=== PATIENT | female | born 1940 | race Caucasian/White ===

== ENCOUNTER 2016-02-24 07:56 | Day surgery (SDC) | payer OTHER, BC ==
[2016-02-20 11:24] VITALS: BMI 23.1
[2016-02-24] MEDS ORDERED: GENTAMICIN SULFATE 0.3% OPHTHALMIC (EYE DROPS) 5ML BOTTLE OS SCH (08:00)
[2016-02-24] MEDS ORDERED: TROPICAMIDE 1% OPHTH SOLN 15 ML BOTTLE OS SCH (08:00)
[2016-02-24] MEDS ORDERED: PHENYLEPHRINE 2.5% OPHTH SOLN 15 ML BOTTLE OS SCH (08:00)
[2016-02-24] MEDS ORDERED: FLURBIPROFEN 0.03% OPHTH SOLN 2.5 ML BOTTLE OS SCH (08:00)
[2016-02-24] MEDS ORDERED: CYCLOPENTOLATE HCL 1% OPHTH SOLN 2 ML BOTTLE OS SCH (08:00)
[2016-02-24] MEDS ORDERED: FLURBIPROFEN 0.03% OPHTH SOLN 2.5 ML BOTTLE ONE (09:01)
[2016-02-24] MEDS ORDERED: CYCLOPENTOLATE HCL 1% OPHTH SOLN 2 ML BOTTLE ONE (09:01)
[2016-02-24] MEDS ORDERED: GENTAMICIN SULFATE 0.3% OPHTHALMIC (EYE DROPS) 5ML BOTTLE ONE (09:02)
[2016-02-24] MEDS ORDERED: TROPICAMIDE 1% OPHTH SOLN 15 ML BOTTLE ONE (09:02)
[2016-02-24] MEDS ORDERED: PHENYLEPHRINE 2.5% OPHTH SOLN 15 ML BOTTLE ONE (09:02)
[2016-02-24] MEDS ORDERED: LACTATED RINGERS SOLUTION 1,000 ML IV SCH (09:15)
[2016-02-24 10:52] VITALS: TEMP 98.3
[2016-02-24] MEDS ORDERED: ACETAMINOPHEN 325 MG TABLET (FP) PO PRN (11:07)
[2016-02-24] MEDS ORDERED: ONDANSETRON 4 MG/2 ML VIAL IVPUSH PRN (11:13)
[2016-02-24 11:21] VITALS: BP 155/52; PULSE 76
--- NOTE | 2016-02-24 13:30 | OP ---
DATE OF OPERATION: 02/24/2016 PREOPERATIVE DIAGNOSIS: Cataract, left eye. POSTOPERATIVE DIAGNOSIS: Cataract, left eye. PROCEDURE: Cataract extraction via phacoemulsification with insertion of posterior chamber lens implant, left eye. SURGEON: Wale Alexander MD TAX ACCOUNTING MANAGER: Sveta Rutledge MD ANESTHESIA: Regional with sedation. COMPLICATIONS: None. SPECIMENS: None. ESTIMATED BLOOD LOSS: Less than 1 mL. DESCRIPTION OF PROCEDURE: The patient was identified in the holding area. After all risks, benefits, and alternatives were explained to the patient, informed consent was obtained. The left eye was marked with a marking pen. The patient was then wheeled into the operating room on an eye stretcher. After formal time-out was performed, a 3-mL injection of equal parts 2% lidocaine with epinephrine and 0.5% Marcaine was given around the left eye. The patient was then prepped and draped in the usual sterile fashion. An eyelid speculum was placed over the eyelid of the right eye. An inferotemporal paracentesis incision was then created using [id number] blade. Viscoelastic was then injected into the anterior chamber. A 2.4-mm keratome blade was then used to make a supratemporal incision. A 360-degree continuous curvilinear capsulorrhexis was then created using cystotome and Utrata forceps. Hydrodissection was then performed using balanced saline solution on a cannula. Phacoemulsification was then introduced to disassemble and remove the nucleus in its entirety. Irrigation/aspiration was then used to remove any remaining cortical material from the eye. The capsular bag was then filled with viscoelastic. An Shaun Model [id number] with a power of 15.5 diopter serial number [id number] was inspected and found to be defect free and injected into the capsular bag. Irrigation/aspiration was then used to remove any remaining viscoelastic from the eye. The intracameral injections of and Miostat were then given. All wounds were then hydrated with balanced saline solution and noted to be watertight. The anterior chamber was deep. The lens was perfectly centered in the capsular bag. The eye had an adequate pressure. Topical antibiotic eyedrops and antibiotics were given to the left eye. The eyelid speculum was removed from the left eye. The left eye was then patched and shielded. The patient tolerated the procedure well and left the operating room in stable condition to follow up in the eye clinic the following morning at 9 o'clock. WALE ALEXANDER M.D. [id number]
== END 2016-02-24 14:20 | disposition home or self-care (01) ==
LOC: FASU 07:56
PROVIDERS: ATTEND Ophthalmology
PROC: 08RK3JZ Replacement of Left Lens with Synthetic Substitute, Percutaneous Approach (ICD-10-PCS; principal; 2016-02-24 09:57)
DX: H26.8 Other specified cataract (principal)

== ENCOUNTER 2016-06-22 07:53 | Day surgery (SDC) | payer OTHER, BC ==
[2016-06-11 12:26] VITALS: BMI 24.0
[2016-06-22] MEDS ORDERED: FLURBIPROFEN 0.03% OPHTH SOLN 2.5 ML BOTTLE ONE (08:09)
[2016-06-22] MEDS ORDERED: GENTAMICIN SULFATE 0.3% OPHTHALMIC (EYE DROPS) 5ML BOTTLE ONE (08:09)
[2016-06-22] MEDS ORDERED: CYCLOPENTOLATE HCL 1% OPHTH SOLN 2 ML BOTTLE ONE (08:09)
[2016-06-22] MEDS ORDERED: PHENYLEPHRINE 2.5% OPHTH SOLN 15 ML BOTTLE ONE (08:09)
[2016-06-22] MEDS ORDERED: TROPICAMIDE 1% OPHTH SOLN 15 ML BOTTLE ONE (08:09)
[2016-06-22] MEDS: FLURBIPROFEN 0.03% OPHTH SOLN 2.5 ML BOTTLE OD SCH ×5 (08:20→08:40)
[2016-06-22] MEDS: CYCLOPENTOLATE HCL 1% OPHTH SOLN 2 ML BOTTLE OD SCH ×5 (08:20→08:40)
[2016-06-22] MEDS: TROPICAMIDE 1% OPHTH SOLN 15 ML BOTTLE OD SCH ×5 (08:20→08:40)
[2016-06-22] MEDS: PHENYLEPHRINE 2.5% OPHTH SOLN 15 ML BOTTLE OD SCH ×5 (08:20→08:40)
[2016-06-22] MEDS: GENTAMICIN SULFATE 0.3% OPHTHALMIC (EYE DROPS) 5ML BOTTLE OD SCH ×5 (08:20→08:40)
[2016-06-22] MEDS ORDERED: MIDAZOLAM HCL 2 MG/2 ML SINGLE DOSE VIAL ONE (09:19)
[2016-06-22] MEDS ORDERED: POVIDONE-IODINE 5% OPHTHALMIC PREP 30 ML SOLUTION ONE (09:27)
[2016-06-22] MEDS ORDERED: BUPIVACAINE HCL/PF 0.5% (5MG/ML) 10 ML VIAL ONE (09:27)
[2016-06-22] MEDS ORDERED: LIDOCAINE HCL/PF 2% SDV 5ML VIAL ONE (09:27)
[2016-06-22] MEDS ORDERED: ACETYLCHOLINE 1:100 INTRA-OCUL 20 MG/2 ML KIT ONE (09:28)
[2016-06-22] MEDS ORDERED: ACETAMINOPHEN 325 MG TABLET (FP) PO PRN (10:47)
[2016-06-22 11:08] VITALS: TEMP 98.1
[2016-06-22 11:34] VITALS: BP 145/68; PULSE 68
--- NOTE | 2016-06-22 11:59 | OP ---
DATE OF OPERATION: 06/22/2016 PREOPERATIVE DIAGNOSIS: Cataract, right eye. POSTOPERATIVE DIAGNOSIS: Cataract, right eye. PROCEDURE: Cataract extraction via phacoemulsification with insertion of posterior chamber lens implant, right eye. SURGEON: Wale Alexander MD LEGAL COUNSEL: Sveta Rutledge MD ANESTHESIA: Regional with sedation. ESTIMATED BLOOD LOSS: Less than 1 mL. SPECIMENS: None. COMPLICATIONS: None. DESCRIPTION OF PROCEDURE: The patient was identified in the holding area. After all risks, benefits, and alternatives were explained to the patient, informed consent was obtained. The right eye was marked with a marking pen. The patient then entered the operating room on an eye stretcher. After formal time-out was performed, a 3 mL injection of equal parts 2% lidocaine with epinephrine and 0.5% Marcaine was given around the right eye. The right eye was then prepped and draped in the usual sterile fashion. An eyelid speculum was placed beneath the eyelid of the right eye. Upon inspection, a myotic pupil was noted. A superotemporal paracentesis incision was then created using [id number] blade followed by 5 equally spaced paracentesis incisions created using a 15-degree blade. Through each of the 5 created paracentesis incisions, a single iris hook was placed. The pupil was then dilated to 6 mm. A 2.4-mm keratome blade was then used to make an infratemporal incision. Viscoelastic was injected into the anterior chamber before the main wound was created. A 360-degree continuous curvilinear capsulorrhexis was then created using thin cystotome and Utrata forceps. Hydrodissection was performed with balanced saline solution on the cannula. Phacoemulsification was introduced to disassemble and remove the nucleus in its entirety. Irrigation/aspiration was then used to remove any remaining cortical material from the eye. The capsular bag was then refilled with viscoelastic. An Shaun Model [id number] with a power of 16.5 diopter serial number [id number] was inspected and found to be defect free and injected into the capsular bag. Irrigation/aspiration was used to remove any remaining viscoelastic from the eye. All 5 iris hooks were then removed from the eye. The anterior chamber was then reformed using balanced saline solution. Intracameral injections of Miochol and Miostat were given, and the pupil came down and was round. All wounds were hydrated with balanced saline solution and found to be watertight. The anterior chamber was deep. There was a red reflex. The lens was perfectly centered in the capsular bag, and the pressure was adequate. Topical antibiotic eyedrops and ointment were administered to the right eye. The right eye was patched and shielded. The eyelid speculum was removed after the topical eye drops and ointment were applied. The patient tolerated the procedure well and left the operating room in stable condition to follow up in the eye clinic the following morning at 9 o'clock. WALE ALEXANDER M.D. [id number]
== END 2016-06-22 11:40 | disposition home or self-care (01) ==
LOC: FASU 07:53
PROVIDERS: ATTEND Ophthalmology
PROC: 08RJ3JZ Replacement of Right Lens with Synthetic Substitute, Percutaneous Approach (ICD-10-PCS; principal; 2016-06-22 10:02)
DX: H26.8 Other specified cataract (principal)

== ENCOUNTER 2023-03-02 06:11 | Day surgery (SDC) | payer OTHER, BC ==
[2023-03-02 06:59] VITALS: BMI 21.7
[2023-03-02] MEDS ORDERED: BUPIVACAINE LIPOSOME/PF (EXPAREL) 266 MG/20 ML VIAL ONE (07:07)
[2023-03-02] MEDS ORDERED: MIDAZOLAM HCL 2 MG/2 ML SINGLE DOSE VIAL ONE ×3 (07:07→08:27)
[2023-03-02] MEDS ORDERED: BUPIVACAINE HCL/PF 0.5% (5 MG/ML) 30 ML VIAL IJ ONE (07:07)
[2023-03-02] MEDS ORDERED: BUPIVACAINE HCL/PF 0.5% (5MG/ML) 10 ML VIAL ONE (07:13)
[2023-03-02] MEDS ORDERED: SODIUM CHLORIDE 0.9% P/F 10 ML VIAL IJ ONE (09:00)
[2023-03-02] MEDS ORDERED: DEXAMETHASONE SOD PHOSPHATE 4 MG/1 ML VIAL ONE (09:00)
[2023-03-02] MEDS ORDERED: TRANEXAMIC ACID 1000 MG/10 ML VIAL ONE (09:00)
[2023-03-02] MEDS ORDERED: ceFAZolin SODIUM 1 GM VIAL ONE (09:00)
[2023-03-02] MEDS ORDERED: ONDANSETRON 4 MG/2 ML VIAL ONE (09:00)
[2023-03-02] MEDS ORDERED: LACTATED RINGERS SOLUTION 1,000 ML IV SCH (09:45)
[2023-03-02] MEDS ORDERED: ACETAMINOPHEN 500 MG TABLET (FP) PO SCH (09:45)
[2023-03-02] MEDS ORDERED: ONDANSETRON 4 MG/2 ML VIAL IVPUSH PRN ×2 (09:45→09:48)
[2023-03-02] MEDS ORDERED: oxyCODONE HCL 5 MG TABLET PO PRN (09:45)
[2023-03-02] MEDS ORDERED: MAGNESIUM HYDROX 2400MG/30ML ORAL SUSPENSION 30 ML CUP PO PRN (09:48)
[2023-03-02] MEDS ORDERED: MAG HYDROX/AL HYDROX/SIMETH 30 ML UNIT-DOSE CUP PO PRN (09:48)
[2023-03-02] MEDS: ACETAMINOPHEN 1000 MG/100 ML BAG IVPB ONE ×2 (09:49→12:31)
[2023-03-02] MEDS ORDERED: CELECOXIB 100 MG CAPSULE PO SCH (10:00)
[2023-03-02] MEDS ORDERED: KETOROLAC TROMETHAMINE 30 MG/1 ML VIAL ONE (10:11)
[2023-03-02] MEDS: KETOROLAC TROMETHAMINE 30 MG/1 ML VIAL IVPUSH SCH ×3 (10:30→15:22)
[2023-03-02 11:28] VITALS: RESP 18
[2023-03-02] MEDS: oxyCODONE HCL 10 MG SUSTAINED ACTING TABLET PO SCH ×2 (12:32→21:09)
[2023-03-02] MEDS: FAMOTIDINE 20 MG TABLET PO SCH ×2 (12:32→21:09)
[2023-03-02] MEDS: SENNOSIDES/DOCUSATE COMBO (SENNA PLUS) TABLET (UD) PO SCH ×2 (12:32→22:18)
[2023-03-02] MEDS: ACETAMINOPHEN 500 MG TABLET (FP) PO SCH (17:40)
[2023-03-02] MEDS: CEFAZOLIN SODIUM 2 GM in DEXTROSE 5%-WATER 100 ML IVPB SCH (17:40)
[2023-03-02] MEDS ORDERED: TRANEXAMIC ACID 1000 MG/10 ML VIAL IVPUSH ONE (21:00)
[2023-03-02] MEDS ORDERED: TRANEXAMIC ACID - 1,000 MG in SODIUM CHLORIDE 50 ML IVPB ONE (21:00)
[2023-03-02] MEDS: ASPIRIN 81 MG CHEWABLE TABLETS PO SCH (21:09)
[2023-03-02] MEDS: DEXAMETHASONE 4 MG TABLET (FP) PO SCH (21:09)
[2023-03-03] MEDS: CEFAZOLIN SODIUM 2 GM in DEXTROSE 5%-WATER 100 ML IVPB SCH (01:00)
[2023-03-03] MEDS: ACETAMINOPHEN 500 MG TABLET (FP) PO SCH ×2 (03:10→09:10)
[2023-03-03] MEDS ORDERED: LEVOTHYROXINE NA 75 MCG TABLET (FP) PO SCH (07:00)
[2023-03-03] MEDS ORDERED: TRANEXAMIC ACID 1000 MG/10 ML VIAL IVPUSH ONE (09:00)
[2023-03-03] MEDS ORDERED: TRANEXAMIC ACID - 1,000 MG in SODIUM CHLORIDE 50 ML IVPB ONE (09:00)
[2023-03-03] MEDS: oxyCODONE HCL 10 MG SUSTAINED ACTING TABLET PO SCH (09:01)
[2023-03-03] MEDS: FAMOTIDINE 20 MG TABLET PO SCH (09:01)
[2023-03-03] MEDS: ASPIRIN 81 MG CHEWABLE TABLETS PO SCH (09:01)
[2023-03-03] MEDS: SENNOSIDES/DOCUSATE COMBO (SENNA PLUS) TABLET (UD) PO SCH (09:01)
[2023-03-03] MEDS: DEXAMETHASONE 4 MG TABLET (FP) PO SCH (09:01)
[2023-03-03] MEDS: oxyCODONE HCL 5 MG TABLET PO PRN ×3 (09:02→12:37)
[2023-03-03] MEDS ORDERED: amLODIPine BESYLATE 5 MG TABLET (FP) PO SCH (10:00)
[2023-03-03] MEDS ORDERED: CELECOXIB 100 MG CAPSULE PO SCH (10:00)
[2023-03-03] MEDS ORDERED: LOSARTAN POTASSIUM 50 MG TABLET PO SCH (10:00)
[2023-03-03 12:09] VITALS: BP 122/64; PULSE 82; TEMP 98.3
[2023-03-03] MEDS ORDERED: ROSUVASTATIN CA 5 MG TABLET PO SCH (22:00)
== END 2023-03-03 12:47 | disposition home or self-care (01) ==
LOC: UNDOADMIN 06:11 → FASUSAT 06:11 → FM/S 06:11 → EDSTATUS 10:00 → FM/S 11:42 → FASUSAT 03-03 12:47
PROVIDERS: ATTEND Orthopaedic Surgery
PROC: 0SRD0J9 Replacement of Left Knee Joint with Synthetic Substitute, Cemented, Open Approach (ICD-10-PCS; principal; 2023-03-02 08:05)
DX: M17.12 Unilateral primary osteoarthritis, left knee (principal)
CPT/HCPCS: 27447; C1776; 73560-TC-LT-FY; 94760; 97010-GP; 97116-GP; 97161-GP; C1889

== ENCOUNTER 2023-10-07 12:59 | Emergency (ER) | payer OTHER, BC ==
[2023-10-07 14:32] LABS: EPITHELIAL CELLS 0-5 /hpf
[2023-10-07 14:46] VITALS: BP 139/57; PULSE 80; RESP 16; TEMP 98.2; BMI 27.4
== END 2023-10-07 15:31 | disposition home or self-care (01) ==
LOC: FER 12:59
DX: N39.0 Urinary tract infection, site not specified (principal)
CPT/HCPCS: 81003; 81015; 87086; 87186; 99283-25